=== PATIENT | female | born 1960 ===

== ENCOUNTER 2016-11-12 22:54 | Emergency (ER) | payer MEDICAID ==
[2016-11-12 23:56] VITALS: RESP 18; TEMP 98.3; BMI 30.2
--- NOTE | 2016-11-13 00:36 | ED PDOC ---
Arrival/HPI - General Chief Complaint: Headache Time Seen by Provider: 11/13/16 00:12 Historian: Patient - History of Present Illness Narrative History of Present Illness (Text): 11/13/16 00:33 Eloisa Poon is a 56 year old female who presents to the emergency department complaining of left sided headache since 6 pm today evening. Reports that symptoms are associated with dizziness and nausea. States she took 2 Advil for headache for minimal symptomatic relief. Denies fever, chills, chest pain, difficulty breathing, abdominal pain, vomiting, diarrhea, urinary symptoms or any other complaints at this time. Time/Duration: Other (since 6 pm today ) Severity Level: Mild Activities at Onset: Light Past Medical History - Provider Review Nursing Documentation Reviewed: Yes - Infectious Disease Hx of Infectious Diseases: None - Cardiac Hx Hypertension: Yes - Psychiatric Hx Substance Use: No - Surgical History Other/Comment: r knee surgery. r foot surgery. r breast biopsy - Anesthesia Hx Anesthesia: Yes Hx Anesthesia Reactions: No Hx Malignant Hyperthermia: No Family/Social History - Physician Review Nursing Documentation Reviewed: Yes Family/Social History: No Known Family HX Smoking Status: Never Smoked Hx Alcohol Use: No Hx Substance Use: No Allergies/Home Meds Allergies/Adverse Reactions: Allergies seasonal Allergy (Uncoded 10/21/15 12:41) CONGESTION Home Medications: Home Meds Medication Instructions Recorded Confirmed Multivitamin [Multivitamins] 1 each PO DAILY 10/21/15 04/16/16 Gabapentin [Neurontin] 300 mg PO DAILY 04/16/16 04/16/16 oxyCODONE/Acetaminophen [Percocet 1 mg PO .Q4-6 PRN 04/16/16 04/16/16 5/325 mg Tab] No Known Home Med 11/13/16 11/13/16 Review of Systems - Physician Review All systems were reviewed & negative as marked: Yes - Review of Systems Constitutional: Normal. absent: Fatigue, Fevers Respiratory: Normal. absent: SOB, Cough, Sputum Cardiovascular: Normal. absent: Chest Pain, Palpitations Gastrointestinal: absent: Abdominal Pain, Diarrhea, Vomiting Neurological: Headache, Dizziness Physical Exam Vital Signs Reviewed: Yes Vital Signs Temp Pulse Resp BP Pulse Ox 11/13/16 03:00 68 18 127/71 99 11/13/16 01:00 69 18 128/72 99 11/12/16 23:56 98.3 F 66 18 130/72 100 Temperature: Afebrile Blood Pressure: Normal Pulse: Regular Respiratory Rate: Normal Appearance: Positive for: Well-Appearing, Non-Toxic, Comfortable Pain Distress: None Mental Status: Positive for: Alert and Oriented X 3 - Systems Exam Head: Present: Atraumatic, Normocephalic Pupils: Present: PERRL Extroacular Muscles: Present: EOMI Conjunctiva: Present: Normal Mouth: Present: Moist Mucous Membranes Neck: Present: Normal Range of Motion Respiratory/Chest: Present: Clear to Auscultation, Good Air Exchange. No: Respiratory Distress, Accessory Muscle Use Cardiovascular: Present: Regular Rate and Rhythm, Normal S1, S2. No: Murmurs Abdomen: Present: Normal Bowel Sounds. No: Tenderness, Distention, Peritoneal Signs Back: Present: Normal Inspection Upper Extremity: Present: Normal Inspection. No: Cyanosis, Edema Lower Extremity: Present: Normal Inspection. No: Edema Neurological: Present: GCS=15, CN II-XII Intact, Speech Normal Skin: Present: Warm, Dry, Normal Color. No: Rashes Psychiatric: Present: Alert, Oriented x 3, Normal Insight, Normal Concentration Medical Decision Making ED Course and Treatment: 11/13/16 00:36 Impression: A 56 year old female who presents to the emergency department complaining of left sided headache since 6 pm today. Plan: -- CT Head -- Reglan -- Reassess and disposition Progress Notes: 11/13/16 02:25 CT Head Without Intravenous Contrast Dictated and Authenticated by: Rubina Garsia MD FINDINGS: Brain: Unremarkable. No hemorrhage. No significant white matter disease. No edema. Ventricles: Unremarkable. No ventriculomegaly. Bones/joints: Unremarkable. No acute fracture. Soft tissues: Unremarkable. Sinuses: Unremarkable as visualized. No acute sinusitis. Mastoid air cells: Unremarkable as visualized. No mastoid effusion. IMPRESSION: No evidence of acute intracranial hemorrhage. No midline shift or hydrocephalus.If symptoms persist, correlation with MRI is advised. Re-evaluation Time: 02:47 Reassessment Condition: Re-examined, Improved - RAD Interpretation Radiology Orders: 11/13/16 00:27 HEAD W/O CONTRAST [CT] Stat - Medication Orders Current Medication Orders: Discontinued Medications Metoclopramide HCl (Reglan) 10 mg IVP ONCE ONE Stop: 11/13/16 00:28 Last Admin: 11/13/16 00:42 Dose: 10 mg - Scribe Statement The provider has reviewed the documentation as recorded by the Esthela Goins Provider Attestation: Provider Esthela Attestation: All medical record entries made by the Esthela were at my direction and personally dictated by me. I have reviewed the chart and agree that the record accurately reflects my personal performance of the history, physical exam, medical decision making, and the department course for this patient. I have also personally directed, reviewed, and agree with the discharge instructions and disposition. Disposition/Present on Arrival - Present on Arrival Any Indicators Present on Arrival: No History of DVT/PE: No History of Uncontrolled Diabetes: No Urinary Catheter: No History of Decub. Ulcer: No History Surgical Site Infection Following: None - Disposition Have Diagnosis and Disposition been Completed?: Yes Diagnosis: Migraine Disposition: HOME/ ROUTINE Disposition Time: 02:47 Condition: GOOD Discharge Instructions (ExitCare): Migraine Headache (ED) Forms: [employer] (Latvian)
[2016-11-13 03:32] VITALS: BP 127/71; PULSE 68; O2SAT 99
--- NOTE | 2016-11-13 07:25 | CT ---
PROCEDURE: CT HEAD WITHOUT CONTRAST. HISTORY: blake COMPARISON: None available. TECHNIQUE: Axial computed tomography images were obtained through the head/brain without intravenous contrast. Radiation dose: Total exam DLP = 689.86 mGy-cm. This CT exam was performed using one or more of the following dose reduction techniques: Automated exposure control, adjustment of the mA and/or kV according to patient size, and/or use of iterative reconstruction technique. FINDINGS: HEMORRHAGE: No intracranial hemorrhage. BRAIN: No mass effect or edema. No atrophy or chronic microvascular ischemic changes. VENTRICLES: Unremarkable. No hydrocephalus. CALVARIUM: Unremarkable. PARANASAL SINUSES: Unremarkable as visualized. No significant inflammatory changes. MASTOID AIR CELLS: Unremarkable as visualized. No inflammatory changes. OTHER FINDINGS: None. IMPRESSION: No intracranial mass, hemorrhage or evidence of acute infarct. Unremarkable examination. Preliminary interpretation of this examination was reported by [facility] at 2:19 a.m. on 11/13/2016. There is concurrence of this report with the preliminary interpretation.
== END 2016-11-13 03:30 | disposition home or self-care (01) ==
LOC: MERGE 22:54 → ED 22:54
DX: G43.909 Migraine, unspecified, not intractable, without status migrainosus (principal)
CPT/HCPCS: 70450; 96374; 99285; J2765